=== PATIENT | male | born 1965 | race Caucasian/White ===

== ENCOUNTER 2019-04-09 01:07 | Emergency (ER) | payer OTHER, BC, SELFPAY ==
[2019-04-09 01:06] VITALS: O2SAT 99
[2019-04-09 01:09] VITALS: BP 140/88; PULSE 82; RESP 20; TEMP 36.3; O2SAT 98
--- NOTE | 2019-04-09 01:10 | ECG_ITS ---
Measurements Intervals [place] Rate: 74 P: 44 ND: 153 QRS: 35 QRSD: 117 T: 20 QT: 385 QTc: 429 Interpretive Statements SINUS RHYTHM POSSIBLE LEFT ATRIAL ENLARGEMENT BORDERLINE ST-T WAVE ABNORMALITY- ANTEROLAT/INF LEADS BASELINE ARTIFACT- I, II, III, AVR, AVL, AVF, V1-V3 BORDERLINE ECG Electronically Signed On 04-14-2019 19:02:12 INSTRUCTIONAL MANAGER by Rishi Forrester D.O.
--- NOTE | 2019-04-09 01:20 | ED.ALLEREA ---
HPI - Allergic Reaction General Chief complaint: Allergic Reaction Stated complaint: DIFF BREATHING Time Seen by Provider: 04/09/19 01:12 Source: patient, EMS and RN notes reviewed Mode of arrival: EMS Limitations: no limitations History of Present Illness HPI narrative: Pt is a 53 y/o male who presents to the ED via EMS with c/o throat swelling starting this morning. He notes that he woke up this morning with his throat feeling swollen. Pt states that he had difficulty breathing due to the swelling. He denies any lip or tongue swelling, sob, cp, rash, extremity swelling, fever, chills, or other symptoms. EMS notes that they administered Benadryl 50 mg and epinephrine while in route to the ED. Pt states that his symptoms are currently resolved in the ED bed. MD complaint: other (Throat Swelling) Exposure: unknown Symptoms: difficulty breathing Treatment prior to arrival: benadryl and epinephrine Related Data Allergies Allergy/AdvReac Type Severity Reaction Status Date / Time No Known Allergies Allergy Verified 02/21/19 12:55 Review of Systems Review of Systems: All systems reviewed & are unremarkable except as noted in HPI and below Constitutional: Constitutional: Denies chills and Denies fever(s) ENT: Reports throat swelling (resolved) Respiratory: Respiratory: Reports other (difficulty breathing (resolved)) Allergic/Immunologic: Allergic/Immunologic: Denies lip swelling and Denies tongue swelling PMFSH Past Medical History Medical History (Updated 04/09/19 @ 01:54 by Gavino Tran MD) Healthy adult male Surgical History Surgical History (Updated 04/09/19 @ 01:37 by Montana Marquez) No significant past surgical history Family History Family History (Updated 09/17/15 @ 23:21 by DOCTOR UNKNOWN) Mother Patient's mother is in good health Father Patient's father is in good health Social History Social History Smoking status: Never smoker Second hand tobacco smoke exposure: No Alcohol intake: current Gender identity (if verbalized by the patient): Male Exam Const: General: cooperative, healthy appearing, comfortable, no acute distress, well developed, alert and awake; No confusion Orientation/consciousness: oriented to person, oriented to place, oriented to time, patient oriented x3 and No confusion Limitations: no limitations HENMT: Head: normal to inspection, normocephalic and atraumatic Mouth: Yes lip normal, Yes tongue normal and No other (tongue swelling; lip swelling) Throat: no other (throat swelling) Neck: Neck: normal visual inspection Resp: Effort & Inspection: normal respiratory effort, able to speak in complete sentences, no respiratory distress and not tachypneic Auscultation: clear to auscultation bilaterally, no crackles, no rales, no rhonchi and no wheezes Cardio: Rate: regular rate Rhythm: regular rhythm GI: Inspection: normal to inspection GI Palp: No abdominal tenderness, Yes Soft to palpation, No Tenderness to palpation present (GI), No Guarding due to palpation present (GI), No Rigid due to palpation and No Rebound tenderness present Auscultation: normal bowel sounds Skin: General skin exam: normal color, no rashes or lesions noted, elasticity normal and turgor normal Neuro: General: oriented to person, oriented to place, oriented to time, patient oriented x3, tone normal, moves all extremities, Normal light touch and pain sensation, no meningeal signs, no focal motor deficits, CN's II-XI intact bilaterally and No confusion Cranial nerves: Yes Equal, round and reactive pupils present Speech: No Abnormal speech present Sensory Exam: No Sensory deficit (Neuro) Extrem: General: normal to inspection, full ROM and capillary refill normal Psych: Appearance: grossly normal and well kempt Mental Status: mental status grossly normal Speech and movement: Normal speech and movement present Affect: normal affect Attitu
[2019-04-09] MEDS: methylPREDNISolone SOD SUCC 125 MG VIAL IV PUSH (01:31)
[2019-04-09] MEDS: FAMOTIDINE 20 MG/2 ML VIAL IV PUSH (01:31)
[2019-04-09 02:03] VITALS: BP 121/76; PULSE 79; RESP 14; O2SAT 95
== END 2019-04-09 02:08 | disposition home or self-care (01) ==
PROVIDERS: Emergency Provider Emergency Medicine
DX: T78.40XA Allergy, unspecified, initial encounter (principal)
CPT/HCPCS: 93005; 96374; 96375; 99284; J2930

== ENCOUNTER → 2019-05-01 09:20 | Outpatient (CLI) | payer OTHER, BC, SELFPAY ==
--- NOTE | ~2019-05-01 | XR_ITS ---
EXAMINATION: XR chest 2V EXAM DATE: 05/01/2019 09:36 INDICATION: Cough. TECHNIQUE: Frontal and lateral projections of the chest obtained and reviewed. There is no prior trudi dy for comparison. FINDINGS: The lungs are clear. There are no pleural effusions. The cardiomediastinal silhouette is within normal limits. There is no pneumothorax suspected. The bones and soft tissues are unremarkab le. IMPRESSION: No acute cardiopulmonary findings. Reviewed, dictated and finalized at location B.
== END ==
PROVIDERS: PCP Internal Medicine; Visit Provider Internal Medicine
DX: R05 Cough (principal)
CPT/HCPCS: 71046